=== PATIENT | male | born 1965 | race Caucasian/White ===

== ENCOUNTER 2018-07-01 22:59 | Emergency (ER) | payer OTHER ==
--- OUTSIDE RECORDS SUMMARY | 2018-07-01 23:14 | XMS REPORT | Continuity of Care Document ---
:1965 External Reference #:[id number] Author Name Edmond Saez M.D. Address [address] [place] [address] Care Team Providers Name Role Phone Edmond Saez M.D. 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 PayID: [id number] [place] [address] Advance Directives Description No Information Available Problems Date Description Provider Status Onset: 02/19/2012 Ulcerative colitis Edmond Saez M.D. Active Onset: 02/19/2012 Pure hypercholesterolemia Edmond Saez M.D. Active Family History Date Family Member(s) Problem(s) Comments Father Kidney stones Mother Diabetes Mother Hypertension Onset: (age 64 Mother Stroke Years) Mother Back pain Mother Migraines Children 2 First Daughter Asthma First Daughter Allergies Siblings 2 First Brother "Born With Multicolored Skin" First Brother Kidney Stones First Sister Cancer, Bladder : (age 86 Paternal Grandfather due to [place] Years) Paternal Grandmother Non Contributory doing well at 95 as of 04/04 Maternal Grandfather Stroke Maternal Grandfather due to Stroke () - may have had a cerebral aneurysm that ruptured Maternal Grandmother Chrons Disease Maternal Grandmother due to Unknown () Causes Maternal Grandmother Dementia Social History Type Date Description Comments Sex Unknown Marital Status Lives With Spouse Diet Healthy, Well Balanced Diet , omnivore, meat 1-2x a vegetables. week. No fastfood. 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 Delzicol 12/05/ Hx Capsules 400mg 360cap 2 by mouth Edmond 2012 - DR richards twice a day Se, 01/26/ Sarwat 2016 Asacol 05/13/ Hx Tablets DR 400mg 360tab 2 bid Edmond 2009 - maurice Saez 12/05/ MFerdinand 2012 Penicillin 10/03/ Hx Tablets 500mg 20tabs One bid [id number] Edmond RICHARDSON 2006 - Days Se, 01/01/ Sarwat 2006 Immunizations CPT Code Status Date Vaccine Lot # [id number] Given 05/22/2018 Influenza Virus Vaccine, Quadrivalent, 3 Yr > [id number] Quad, Preserv Free [id number] Given 05/13/2010 Tdap (Adacel) [id number] Given 05/13/2010 Influenza Vaccine-Preservative Free 3 Yrs And [id number] Above 03660 Given 03/27/2006 Hep B Vaccine Adult, 3 Dose age >20 yrs [id number] Given 03/27/2006 Hepatitis A, Adult [id number] 89700 Given 10/25/2005 Hep B Vaccine Adult, 3 Dose age >20 yrs 36801 Given 09/27/2005 Hep B Vaccine Adult, 3 Dose age >20 yrs [id number] 40107 Given 09/27/2005 Hepatitis A, Adult [id number] 71954 Given 01/14/2004 DT (Adult) Vital Signs Date Vital Result Comment 05/22/2018 1:48pm Weight 189.00 lb Weight 85.730 kg BP Systolic 128 mmHg BP Diastolic 80 mmHg Heart Rate 58 /min Body Temperature 97.9 F Respiratory Rate 16 /min Height 69 inches 5'9" BMI (Body Mass Index) 27.9 kg/m2 05/10/2017 10:46am Weight 193.00 lb Weight 87.545 kg BP Systolic 100 mmHg BP Diastolic 80 mmHg Heart Rate 56 /min Body Temperature 97.6 F Height 68 inches 5'8" BMI (Body Mass Index) 29.3 kg/m2 03/15/2016 8:36am Weight 192.00 lb Weight 87.091 kg BP Systolic 112 mmHg BP Diastolic 78 mmHg Heart Rate 56 /min Height 69 inches 5'9" BMI (Body Mass Index) 28.4 kg/m2 Waist Circumference 39 01/28/2016 11:27am Weight 195.00 lb Weight 88.452 kg BP Systolic 98 mmHg BP Diastolic 70 mmHg Heart Rate 50 /min 02/12/2015 2:10pm Weight 187.00 lb Weight 84.823 kg BP Systolic 100 mmHg BP Diastolic 70 mmHg Heart Rate 52 /min Height 69 inches 5'9" BMI (Body Mass Index) 27.6 kg/m2 07/03/2013 2:19pm Weight 183.00 lb Weight 83.009 kg BP Systolic 110 mmHg BP Diastolic 72 mmHg Heart Rate 68 /min Height 69 inches 5'9" BMI (Body Mass Index) 27.0 kg/m2 02/06/2013 10:04am Weight 184.00 lb Weight 83.462 kg BP Systolic 120 mmHg BP Diastolic 78 mmHg Heart Rate 58 /min 12/29/2011 8:44am Weight 165.00 lb Weight 74.844 kg BP Systolic 90 mmHg BP Diastolic 70 mmHg Heart Rate 72 /min Height 69.25 inches 5'9.25" BMI (Body Mass Index) 24.2 kg/m2 05/13/2010 8:44am Weight 187.00 lb Weight 84.823 kg BP Systolic 102 mmHg BP Diastolic 80 mmHg Heart Rate 72 /min Height 69 inches 5'9" BMI (Body Mass Index) 27.6 kg/m2 06/18/2009 11:16am Weight 190.00 lb Weight 86.184 kg BP Systolic 112 mmHg BP Diastolic 68 mmHg Heart Rate 64 /min Body Temperature 97.8 F 04/30/2008 9:49am Weight 182.00 lb Weight 82.555 kg BP Systolic 100 mmHg repeat 120/84 BP Diastolic 90 mmHg repeat 120/84 Heart Rate 60 /min Height 69 inches 5'9" BMI (Body Mass Index) 26.9 kg/m2 10/03/2006 9:03am Weight 185.00 lb Weight 83.916 kg BP Systolic 106 mmHg BP Diastolic 64 mmHg Heart Rate 68 /min Body Temperature 97.6 F Height 69 inches 5'9" BMI (Body Mass Index) 27.3 kg/m2 09/27/2005 1:19pm Weight 184.00 lb Weight 83.462 kg BP Systolic 110 mmHg BP Diastolic 80 mmHg Heart Rate 62 /min Respiratory Rate 18 /min Height 69 inches 5'9" BMI (Body Mass Index) 27.2 kg/m2 10/06/2004 12:05pm Weight 180.00 lb Weight 81.648 kg BP Systolic 120 mmHg BP Diastolic 80 mmHg Heart Rate 80 /min Body Temperature 97.1 F Respiratory Rate 18 /min Height 69 inches 5'9" BMI (Body Mass Index) 26.6 kg/m2 01/14/2004 1:27pm Weight 182.00 lb Weight 82.555 kg BP Systolic 110 mmHg BP Diastolic 76 mmHg Heart Rate 56 /min Height 69 inches BMI (Body Mass Index) 26.9 kg/m2 Results Test Date Facility Test Result H/L Range Note CBC Auto Diff 05/22/2018 [facility] White Blood 6.7 10^3/uL 3.5-10.8 [phone] Count Red Blood Count 5.57 10^6/uL High 4.00-5.40 Hemoglobin 17.1 g/dL 14.0-18.0 Hematocrit 49 % 42-52 Mean Corpuscular Volume 89 fL 80-94 Mean Corpuscular Hemoglobin 31 pg 27-31 Mean Corpuscular HGB Conc 35 g/dL 31-36 Red Cell Distribution Width 13 % 10.5-15 Platelet Count 210 10^3/uL 150-450 Mean Platelet Volume 8.3 um3 7.4-10.4 Abs Neutrophils 4.1 10^3/uL 1.5-7.7 Abs Lymphocytes 1.9 10^3/uL 1.0-4.8 Abs Monocytes 0.4 10^3/uL 0-0.8 Abs Eosinophils 0.2 10^3/uL 0-0.6 Abs Basophils 0.1 10^3/uL 0-0.2 Abs Nucleated RBC 0 10^3/uL Granulocyte % 61.6 % 38-83 Lymphocyte % 28.0 % 25-47 Monocyte % 6.3 % 0-7 Eosinophil % 3.3 % 0-6 Basophil % 0.8 % 0-2 Nucleated Red Blood Cells % 0.1 Comp Metabolic Panel 05/22/2018 [facility] Sodium 141 mmol/L 135-145 [phone] Potassium 4.8 mmol/L 3.5-5.0 Chloride 105 mmol/L 101-111 Co2 Carbon Dioxide 28 mmol/L 22-32 Anion Gap 8 mmol/L 2-11 Glucose 97 mg/dL 70-100 Blood Urea Nitrogen 10 mg/dL 6-24 Creatinine 1.00 mg/dL 0.67-1.17 BUN/Creatinine Ratio 10.0 8-20 Calcium 9.9 mg/dL 8.6-10.3 Total Protein 7.4 g/dL 6.4-8.9 Albumin 4.9 g/dL 3.2-5.2 Globulin 2.5 g/dL 2-4 Albumin/Globulin Ratio 2.0 1-3 Total Bilirubin 0.50 mg/dL 0.2-1.0 Alkaline Phosphatase 51 U/L 34-104 Alt 19 U/L 7-52 Ast 14 U/L 13-39 Egfr Non- 78.8 >60 Egfr 95.3 >60 1 Lipid Profile 05/22/2018 [facility] Triglycerides 192 mg/dL 2 (Trig/Chol/HDL) [phone] Cholesterol 153 mg/dL 3 HDL Cholesterol 31.0 mg/dL 4 LDL Cholesterol 84 mg/dL 5 Laboratory test 05/22/2018 [facility] PSA Screening 0.489 0-4.000 6 finding [phone] CBC Auto Diff 05/08/2018 [facility] White Blood 5.6 3.5-10.8 [phone] Count 10^3/uL Red Blood Count 5.16 10^6/uL 4.00-5.40 Hemoglobin 15.7 g/dL 14.0-18.0 Hematocrit 46 % 42-52 Mean Corpuscular Volume 90 fL 80-94 Mean Corpuscular Hemoglobin 31 pg 27-31 Mean Corpuscular HGB Conc 34 g/dL 31-36 Red Cell Distribution Width 14 % 10.5-15 Platelet Count 204 10^3/uL 150-450 Mean Platelet Volume 8.2 um3 7.4-10.4 Abs Neutrophils 3.1 10^3/uL 1.5-7.7 Abs Lymphocytes 1.7 10^3/uL 1.0-4.8 Abs Monocytes 0.5 10^3/uL 0-0.8 Abs Eosinophils 0.3 10^3/uL 0-0.6 Abs Basophils 0.1 10^3/uL 0-0.2 Abs Nucleated RBC 0 10^3/uL Granulocyte % 54.9 % 38-83 Lymphocyte % 30.6 % 25-47 Monocyte % 8.2 % High 0-7 Eosinophil % 4.8 % 0-6 Basophil % 1.5 % 0-2 Nucleated Red Blood Cells % 0.6 Comp Metabolic Panel 05/08/2018 [facility] Sodium 139 mmol/L 135-145 [phone] Potassium 4.7 mmol/L 3.5-5.0 Chloride 106 mmol/L 101-111 Co2 Carbon Dioxide 29 mmol/L 22-32 Anion Gap 4 mmol/L 2-11 Glucose 98 mg/dL 70-100 Blood Urea Nitrogen 14 mg/dL 6-24 Creatinine 1.13 mg/dL 0.67-1.17 BUN/Creatinine Ratio 12.4 8-20 Calcium 9.1 mg/dL 8.6-10.3 Total Protein 6.9 g/dL 6.4-8.9 Albumin 4.3 g/dL 3.2-5.2 Globulin 2.6 g/dL 2-4 Albumin/Globulin Ratio 1.7 1-3 Total Bilirubin 0.50 mg/dL 0.2-1.0 Alkaline Phosphatase 44 U/L 34-104 Alt 19 U/L 7-52 Ast 13 U/L 13-39 Egfr Non- 68.4 >60 Egfr 82.8 >60 7 Lipid Profile 05/08/2018 [facility] Triglycerides 176 mg/dL 8 (Trig/Chol/HDL) [phone] Cholesterol 153 mg/dL 9 HDL Cholesterol 30.4 mg/dL 10 LDL Cholesterol 87 mg/dL 11 Laboratory test 01/17/2018 [facility] Lyme Disease Negative Negative 12 finding [phone] Serology Laboratory test 10/12/2017 [facility] Surgical SEE RESULT 13 finding [phone] Interface BELOW Order Urine DIP 05/10/2017 In House Lab Leukocytes TRACE Neg (607)- - Urine Nitrites NEG Neg Urobilinogen NORM Norm Total Protein, Urine NEG Neg Urine pH 5 5-6 Urine Blood NEG Neg Specific [place] 1.02 1.01-1.02 Urine Ketones NEG Neg Urine Bilirubin NEG Neg Urine Glucose NORM Norm Comp Metabolic 03/03/2017 [facility] Sodium 138 mmol/ L 133-145 14 Panel [phone] Potassium 4.3 mmol/L 3.5-5.0 Chloride 107 mmol/L 101-111 Co2 Carbon Dioxide 26 mmol/L 22-32 Anion Gap 5 mmol/L 2-11 Glucose 99 mg/dL 70-100 Blood Urea Nitrogen 9 mg/dL 6-24 Creatinine 1.14 mg/dL 0.67-1.17 BUN/Creatinine Ratio 7.9 Low 8-20 Calcium 9.1 mg/dL 8.6-10.3 Total Protein 6.7 g/dL 6.4-8.9 Albumin 4.2 g/dL 3.2-5.2 Globulin 2.5 g/dL 2-4 Albumin/Globulin Ratio 1.7 1-3 Total Bilirubin 0.50 mg/dL 0.2-1.0 Alkaline Phosphatase 40 U/L 34-104 Alt 14 U/L 7-52 Ast 13 U/L 13-39 Egfr Non- 68.0 >60 Egfr 87.4 >60 15 Lipid Profile 03/03/2017 [facility] Triglycerides 126 mg/dL 16 (Trig/Chol/HDL) [phone] Cholesterol 139 mg/dL 17 HDL Cholesterol 25.3 mg/dL 18 LDL Cholesterol 89 mg/dL 19 CBC Auto Diff 03/03/2017 [facility] White Blood 5.9 10^3/uL 3.5-10.8 [phone] Count Red Blood Count 5.00 10^6/uL 4.0-5.4 Hemoglobin 13.5 g/dL Low 14.0-18.0 Hematocrit 41 % Low 42-52 Mean Corpuscular Volume 82 fL 80-94 Mean Corpuscular Hemoglobin 27 pg 27-31 Mean Corpuscular HGB Conc 33 g/dL 31-36 Red Cell Distribution Width 16 % High 10.5-15 Platelet Count 198 10^3/uL 150-450 Mean Platelet Volume 8 um3 7.4-10.4 Abs Neutrophils 3.4 10^3/uL 1.5-7.7 Abs Lymphocytes 1.6 10^3/uL 1.0-4.8 Abs Monocytes 0.5 10^3/uL 0-0.8 Abs Eosinophils 0.3 10^3/uL 0-0.6 Abs Basophils 0.1 10^3/uL 0-0.2 Abs Nucleated RBC 0 10^3/uL Granulocyte % 58.4 % 38-83 Lymphocyte % 27.2 % 25-47 Monocyte % 8.5 % 1-9 Eosinophil % 4.8 % 0-6 Basophil % 1.1 % 0-2 Nucleated Red Blood Cells % 0.1 Laboratory test 03/03/2017 [facility] PSA Screening 0.418 ng/mL 0-4.000 20 finding [phone] Laboratory test 09/11/2015 [facility] Surgical SEE RESULT 21 finding [phone] Pathology BELOW Comp Metabolic 02/09/2015 [facility] Sodium 139 mmol/ L 133-145 Panel [phone] Potassium 4.3 mmol/L 3.5-5.0 Chloride 109 mmol/L 101-111 Co2 Carbon Dioxide 25 mmol/L 22-32 Anion Gap 5 mmol/L 2-11 Glucose 96 mg/dL 70-100 Blood Urea Nitrogen 11 mg/dL 6-24 Creatinine 1.10 mg/dL 0.67-1.17 BUN/Creatinine Ratio 10.0 8-20 Calcium 8.7 mg/dL 8.6-10.3 Total Protein 6.6 g/dL 6.4-8.9 Albumin 4.3 g/dL 3.2-5.2 Globulin 2.3 g/dL 2-4 Albumin/Globulin Ratio 1.9 1-3 Total Bilirubin 0.50 mg/dL 0.2-1.0 Alkaline Phosphatase 41 U/L 34-104 Alt 14 U/L 7-52 Ast 13 U/L 13-39 Egfr Non- 71.4 >60 Egfr 91.9 >60 22 Lipid Profile 02/09/2015 [facility] Triglycerides 140 mg/dL 23 (Trig/Chol/HDL) [phone] Cholesterol 143 mg/dL 24 HDL Cholesterol 28.1 mg/dL 25 LDL Cholesterol 87 mg/dL 26 CBC Auto Diff 02/09/2015 [facility] White Blood 5.5 10^3/uL 4.8-10.8 [phone] Count Red Blood Count 5.13 10^6/uL 4.0-5.4 Hemoglobin 14.4 g/dL 14.0-18.0 Hematocrit 44 % 42-52 Mean Corpuscular Volume 86 fL 80-94 Mean Corpuscular Hemoglobin 28 pg 27-31 Mean Corpuscular HGB Conc 33 g/dL 31-36 Red Cell Distribution Width 16 % High 10.5-15 Platelet Count 217 10^3/uL 150-450 Mean Platelet Volume 9 um3 7.4-10.4 Abs Neutrophils 3.3 10^3/uL 1.5-7.7 Abs Lymphocytes 1.5 10^3/uL 1.0-4.8 Abs Monocytes 0.4 10^3/uL 0-0.8 Abs Eosinophils 0.3 10^3/uL 0-0.6 Abs Basophils 0.1 10^3/uL 0-0.2 Abs Nucleated RBC 0 10^3/uL Granulocyte % 59.4 % 38-83 Lymphocyte % 27.8 % 25-47 Monocyte % 7.1 % 1-9 Eosinophil % 4.6 % 0-6 Basophil % 1.1 % 0-2 Nucleated Red Blood Cells % 0.1 Surgical Pathology 09/03/2013 [facility] S RUN DATE: 08 [phone] 09/04/ <SEE NOTE> Urine DIP 07/03/2013 In House Lab Leukocytes neg Neg (607)- - Urine Nitrites neg Neg Urine pH 6 5-6 Total Protein, Urine neg Neg Urine Glucose norm Norm Urine Ketones neg Neg Urobilinogen norm Norm Urine Bilirubin neg Neg Urine Blood neg Neg Specific [place] 1.015 1.01-1.02 CBC No Diff 06/27/2013 [facility] White Blood 5.9 10^ 3/uL 4.8-10.8 [phone] Count Red Blood Count 5.00 10^6/uL 4.0-5.4 Hemoglobin 14.4 g/dL 14.0-18.0 Hematocrit 43 % 42-52 Mean Corpuscular Volume 86 fL 80-94 Mean Corpuscular Hemoglobin 29 pg 27-31 Mean Corpuscular HGB Conc 33 g/dL 31-36 Red Cell Distribution Width 14 % 10.5-15 Platelet Count 198 10^3/uL 150-450 Mean Platelet Volume 8 um3 7.4-10.4 Comp Metabolic Panel 06/27/2013 [facility] Sodium 138 mmol/L 133-145 [phone] Potassium 4.4 mmol/L 3.5-5.0 Chloride 106 mmol/L 101-111 Co2 Carbon Dioxide 26.0 mmol/L 22-32 Anion Gap 6.0 mmol/L 2-11 Glucose 96 mg/dL 70-100 Blood Urea Nitrogen 9 mg/dL 6-24 Creatinine 1.10 mg/dL 0.50-1.40 BUN/Creatinine Ratio 8.2 8-20 Calcium 9.5 mg/dL 8.1-9.9 Total Protein 6.7 g/dL 6.2-8.1 Albumin 4.3 g/dL 3.6-5.4 Globulin 2.4 g/dL 2-4 Albumin/Globulin Ratio 1.8 1-3 Total Bilirubin 0.9 mg/dL 0.4-1.5 Alkaline Phosphatase 44 U/L 30-110 Alt 16 U/L 14-54 Ast 18 U/L 12-42 Egfr Non- 72.1 >60 Egfr 92.7 >60 28 Lipid Profile 06/27/2013 [facility] Triglycerides 113 mg/dL 40-200 (Trig/Chol/HDL) [phone] Cholesterol 164 mg/dL Less than 200 HDL Cholesterol 30 mg/dL Low 40-60 29 Cholesterol/HDL Ratio 5.5 Average High 1-4.44 LDL Cholesterol 111.4 High Less Than 100 30 Urine DIP 12/29/2011 In House Lab Leukocytes NEG Neg (607)- - Urine Nitrites NEG Neg Urine pH 5 5-6 Total Protein, Urine NEG Neg Urine Glucose NORM Norm Urine Ketones NEG Neg Urobilinogen NORM Norm Urine Bilirubin NEG Neg Urine Blood NEG Neg Specific [place] N/A Low 1.01-1.02 Lipid Profile 12/21/2011 [facility] Triglyceride 91 mg/dL 40-200 (Trig/Chol/HDL) [phone] Cholesterol 171 mg/dL Less Than 200 31 High Density Lipoprotein 31 mg/dL Low 40-60 32 Cholesterol/HDL Ratio 5.52 AVERAGE High 1-4.97 Low Density Lipoprotein 122 mg/dL High Less Than 100 33 Basic Metabolic 12/21/2011 [facility] Sodium 138 mmol /L 135-145 Panel [phone] Potassium 5.0 mmol/L 3.5-5.0 Chloride 103 mmol/L 101-111 Co2 (Carbon Dioxide) 30.0 mmol/L 22-32 Anion Gap 5.0 mmol/L 2-11 34 Glucose 97 mg/dL 70-100 BUN 9 mg/dL 6-24 Creatinine 1.1 mg/dL 0.50-1.40 One Over Creatinine 0.90 BUN/Creatinine Ratio 8.2 8-20 Calcium 8.9 mg/dL 8.1-9.9 eGFR Non- 72.4 > 60 eGFR 93.1 > 60 35 Surgical 07/12/2011 [facility] Surgical --- 36 Pathology [phone] Pathology <SEE NOTE> Urine DIP 05/13/2010 In House Lab Leukocytes neg Neg (607)- - Urine Nitrites neg Neg Urine pH 5 5-6 Total Protein, Urine trace Neg Urine Glucose norm Norm Urine Ketones neg Neg Urobilinogen norm Norm Urine Bilirubin neg Neg Urine Blood neg Neg Specific [place] n/a Low 1.01-1.02 Lipid Profile 04/29/2010 [facility] Triglyceride 182 mg/dL 40-200 (Trig/Chol/HDL) [phone] Cholesterol 143 mg/dL Less Than 200 37 High Density Lipoprotein 20 mg/dL Low 40-60 38 Cholesterol/HDL Ratio 7.15 AVERAGE High 1-4.97 Low Density Lipoprotein 87 mg/dL Less Than 100 39 Laboratory test 04/29/2010 [facility] Glucose 89 mg/ dL 70-100 40 finding [phone] Surgical 07/14/2009 [facility] Surgical 41 Pathology [phone] Pathology ------ <SEE NOTE> Laboratory test 06/18/2009 In House Lab Strep Screen NEG Neg finding (607)- - Urine DIP 04/30/2008 In House Lab Leukocytes neg Neg (607)- - Urine Nitrites neg Neg Urine pH 6-7 5-6 Total Protein, Urine neg Neg Urine Glucose norm Norm Urine Ketones neg Neg Urobilinogen norm Norm Urine Bilirubin neg Neg Urine Blood neg Neg Specific [place] n/a Low 1.01-1.02 Laboratory test 10/03/2006 In House Lab Strep Screen pos Neg finding (607)- - Surgical Pathology 03/14/2006 [facility] Surgical Pathology 42 [phone] ----- <SEE NOTE> Urine DIP 09/27/2005 In House Lab Leukocytes NEG Neg (607)- - Urine Nitrites NEG Neg Urine pH 5 5-6 Total Protein, Urine NL Neg Urine Glucose NL; Norm Urine Ketones NL Neg Urobilinogen NL Norm Urine Bilirubin NL Neg Urine Blood NL Neg Specific [place] N/A Low 1.01-1.02 Laboratory test 03/09/2004 [facility] Pathology COLON BIOPSY finding (607)- - Report Lipid Profile 01/14/2004 [facility] Cholesterol/HDL 5.81 AVERAGE High 1-4.97 (Trig/Chol/HDL) [phone] Ratio Cholesterol 151 mg/dL Less Than 200 43 Triglyceride 125 mg/dL 40-200 High Density Lipoprotein 26 mg/dL Low 40-60 44 Low Density Lipoprotein 100 mg/dL Less Than 100 45 Urine DIP 01/14/2004 In House Lab Leukocytes NEG Neg (607)- - Urine Nitrites NEG Neg Urine pH 5 5-6 Total Protein, Urine NEG Neg Urine Glucose NORM Norm Urine Ketones NEG Neg Urobolinogen NORM Norm Urine Bilirubin NEG Neg Urine Blood NEG Neg Specific [place] NA Low 1.01-1.02 1 Because ethnic data is not always readily available, this report includes an eGFR for both -Americans and non- Americans. The National Kidney Disease Education Program (NKDEP) does not endorse the use of the MDRD equation for patients that are not between the ages of 18 and 70, are , have extremes of body size, muscle mass, or nutritional status, or are non- or non-. According to the National Kidney Foundation, irrespective of diagnosis, the stage of the disease is based on the level of kidney function: Stage Description GFR(mL/min/1.73 m(2)) 1 Kidney damage with normal or decreased GFR 90 2 Kidney damage with mild decrease in GFR 60-89 3 Moderate decrease in GFR 30-59 4 Severe decrease in GFR 15-29 5 Kidney failure <15 (or dialysis) 2 Desirable: <150 Borderline High: 150-199 High: 200-499 Very High: >500 3 Desirable: <200 Borderline High: 200-239 High: >239 4 Low: <40 Desirable: 40-60 High: >60 5 Desirable: <100 Near Optimal: 100-129 Borderline High: 130-159 High: 160-189 Very High: >189 6 Serum levels of PSA measured using the [employer] DXI Hybritech immunoassay should not be interpreted as absolute evidence of the presence or absence of disease. The PSA value should be used in conjunction with other pertinent clinical diagnostic procedures. A PSA value in the range of 0.1 to 0.6 ng/ml is indeterminate if being used as an indicator of recurrent or residual disease. The values obtained with different assay methods or kits cannot be used interchangeably. 7 Because ethnic data is not always readily available, this report includes an eGFR for both -Americans and non- Americans. The National Kidney Disease Education Program (NKDEP) does not endorse the use of the MDRD equation for patients that are not between the ages of 18 and 70, are , have extremes of body size, muscle mass, or nutritional status, or are non- or non-. According to the National Kidney Foundation, irrespective of diagnosis, the stage of the disease is based on the level of kidney function: Stage Description GFR(mL/min/1.73 m(2)) 1 Kidney damage with normal or decreased GFR 90 2 Kidney damage with mild decrease in GFR 60-89 3 Moderate decrease in GFR 30-59 4 Severe decrease in GFR 15-29 5 Kidney failure <15 (or dialysis) 8 Desirable: <150 Borderline High: 150-199 High: 200-499 Very High: >500 9 Desirable: <200 Borderline High: 200-239 High: >239 10 Low: <40 Desirable: 40-60 High: >60 11 Desirable: <100 Near Optimal: 100-129 Borderline High: 130-159 High: 160-189 Very High: >189 12 No evidence of antibodies to B. burgdorferi detected. False negative results may occur in recently infected patients (<=2 weeks) due to low or undetectable antibody levels to B. burgdorferi. If recent exposure is suspected, a second sample should be collected and tested in 2-4 weeks. Test Performed by: [facility] [address] [place] [address] 13 SEE RESULT BELOW Name: DREW PAZ : [address]: Janay Neal DO Acct: [id number] Unit: [id number] AGE: 51 Location: ENDO Re10/12/17 SEX: M Status: DEP REF SPEC: [id number] SHANEL: 10/12/17-1210 [facility] DR: Janay Neal DO REQ: [id number] RECD: 10/12/17-1523 STATUS: SEMAJ ELLIS DR: Edmond Saez MD _ ORDERED: LEVEL 4/9 FINAL DIAGNOSIS 1. Terminal ileum, biopsy: -- Benign small intestinal mucosa with no significant pathologic abnormalities. -- No evidence of villous blunting or increased intraepithelial lymphocytes. -- No evidence of viral cytopathic effect or parasites. 2. Colon, cecum, biopsy: -- Very mild, inactive chronic colitis. -- No granulomata are seen. -- Dysplasia is absent. 3. Colon, ascending, biopsy: -- Very mild, inactive chronic colitis. -- No granulomata are seen. -- Dysplasia is absent. 4. Colon, transverse, biopsy: -- Very mild, inactive chronic colitis. -- Granulomata are not seen. -- Dysplasia is absent. 5. Colon, descending, biopsy: -- Very mild, inactive chronic colitis. -- Granulomata are not seen. -- Dysplasia is absent. 6. Colon, sigmoid, biopsy: -- Mild inactive chronic colitis. -- Granulomata are not seen. -- Dysplasia is absent. 7. Colon, sigmoid, biopsy: -- Hyperplastic polyps (4). 8. Colon, rectum, biopsy: CONTINUED ON NEXT PAGE * ML=Testing performed at Main Lab DEPARTMENT OF PATHOLOGY, [address] [place] [address] Zak Hubbard M.D. Director [facility] # [id number] RUN DATE: 10/13/17 [facility] LIVE PAGE 2 Patient: DREW PAZ [id number] (Continued) FINAL DIAGNOSIS (Continued) -- Hyperplastic polyps (2). 9. Colon, rectum, biopsy: --Very mild inactive chronic colitis. -- Granulomata are not seen. -- Dysplasia is absent. CLINICAL HISTORY 51 year old male here with ulcerative colitis and surveillance colonoscopy; on Delzicol; last colonoscopy in 2016 - normal POST-OPERATIVE DIAGNOSIS Normal terminal ileum; diverticulosis in ascending colon, descending colon ( scattered); four 4 mm sessile sigmoid polyps and two 4 mm sessile rectal polyps both status post polypectomy; good prep. Conclusions/Plan: Follow-up pathology; 2 years GROSS DESCRIPTION 1. The specimen is received in formalin labeled, Biopsy Terminal Ileum, and consists of two sue-pink irregular soft tissue fragments measuring 0.3 x 0.2 x 0.1 cm and 0.4 x 0.2 x 0.1 cm which are submitted entirely in one cassette. 2. The specimen is received in formalin labeled, Biopsy Cecum, and consists of two sue-pink irregular soft tissue fragments averaging 0.4 x 0.2 x 0.1 cm which are submitted entirely in one cassette. 3. The specimen is received in formalin labeled, Biopsy Ascending Colon, and consists of a 0.6 x 0.3 x 0.1 cm sue-pink irregular soft tissue fragment is submitted entirely in one cassette. 4. The specimen is received in formalin labeled, Biopsy Transverse Colon, and consists of two sue-pink irregular soft tissue fragments measuring 0.4 x 0.2 x 0.1 cm and 0.5 x 0.1 x 0.1 cm which are submitted entirely in one cassette. 5. The specimen is received in formalin labeled, Biopsy Descending Colon, and consists of two sue-pink irregular soft tissue fragments measuring 0.3 x 0.2 x 0.1 cm and 0.8 by up to 0.3 x 0.1 cm which are submitted entirely in one cassette. 6. The specimen is received in formalin labeled, Biopsy Sigmoid Colon, and consists of two CONTINUED ON NEXT PAGE * ML=Testing performed at Main Lab DEPARTMENT OF PATHOLOGY, [address] [place] [address] Zak Hubbard M.D. Director [facility] # [id number] RUN DATE: 10/13/17 [facility] LAB LIVE PAGE 3 Patient: DREW PAZ [id number] (Continued) GROSS DESCRIPTION (Continued) GROSS DESCRIPTION (Continued) sue-pink irregular soft tissue fragments measuring 0.4 x 0.3 x 0.1 cm and 0.7 x 0.1 x 0.1 cm which are submitted entirely in one cassette. 7. The specimen is received in formalin labeled, Biopsy Sigmoid Polyps, and consists of a 1.0 x 0.6 by up to 0.2 cm aggregate of sue-pink irregular soft tissue fragments which is submitted entirely in one cassette. 8. The specimen is received in formalin labeled, Biopsy Rectal Polyps, and consists of a 0.8 x 0.3 x 0.2 cm aggregate of sue-pink irregular soft tissue fragments which is submitted entirely in one cassette. 9. The specimen is received in formalin labeled, Biopsy Rectum, and consists of two sue-pink irregular soft tissue fragments averaging 0.7 x 0.2 x 0.1 cm which are submitted entirely in one cassette. Signed (signature on file) Cony Jackman MD 1403 END OF REPORT * ML=Testing performed at Main Lab DEPARTMENT OF PATHOLOGY, [address] [place] [address] Zak Hubbard M.D. Director [facility] # [id number] Because ethnic data is not always readily available, this report includes an eGFR for both -Americans and non- Americans. The National Kidney Disease Education Program (NKDEP) does not endorse the use of the MDRD equation for patients that are not between the ages of 18 and 70, are , have extremes of body size, muscle mass, or nutritional status, or are non- or non-. According to the National Kidney Foundation, irrespective of diagnosis, the stage of the disease is based on the level of kidney function: Stage Description GFR(mL/min/1.73 m(2)) 1 Kidney damage with normal or decreased GFR 90 2 Kidney damage with mild decrease in GFR 60-89 3 Moderate decrease in GFR 30-59 4 Severe decrease in GFR 15-29 5 Kidney failure <15 (or dialysis) 16 Desirable <150 Borderline high 150-199 High 200-499 Very High >500 17 Desirable <200 Borderline high 200-239 High >239 18 Low <40 Desirable: 40-60 High: >60 19 Desirable: <100 mg/dL Near Optimal: 100-129 mg/dL Borderline High: 130-159 mg/dL High: 160-189 mg/dL Very High: >189 mg/dL 20 Serum levels of PSA measured using the Rabia Kamryn DXI Hybritech immunoassay should not be interpreted as absolute evidence of the presence or absence of disease. The PSA value should be used in conjunction with other pertinent clinical diagnostic procedures. A PSA value in the range of 0.1 to 0.6 ng/ml is indeterminate if being used as an indicator of recurrent or residual disease. The values obtained with different assay methods or kits cannot be used interchangeably. 21 SEE RESULT BELOW Name: DREW PAZ : [address]: Jaswant Turner MD Acct: [id number] Unit: [id number] AGE: 49 Location: ENDO Re09/11/15 SEX: M Status: REG REF SPEC: [id number] SHANEL: 09/11/15- SUBM DR: Jaswant Turner MD REQ: [id number] RECD: 09/11/15-1305 STATUS: SEMAJ ELLIS DR: Edmond Saez MD _ ORDERED: LEVEL IV/6 FINAL DIAGNOSIS 1. Colon, 110 cm, biopsy: -- Large intestinal mucosa with mild architectural disorder. -- No active colitis or evidence of chronic inflammatory bowel disease identified. -- No dysplasia identified. 2. Colon, 90 cm, biopsy: -- Large intestinal mucosa with mild architectural disorder. -- No active colitis or evidence of chronic inflammatory bowel disease identified. -- No dysplasia identified. 3. Colon, 70 cm, biopsy: -- Large intestinal mucosa with mild architectural disorder. -- No active colitis or evidence of chronic inflammatory bowel disease identified. -- No dysplasia identified. 4. Colon, 50 cm, biopsy: -- Large intestinal mucosa with mild architectural disorder. -- No active colitis or evidence of chronic inflammatory bowel disease identified. -- No dysplasia identified. 5. Colon, 30 cm, biopsy: -- Large intestinal mucosa with mild architectural disorder. -- No active colitis or evidence of chronic inflammatory bowel disease identified. -- No dysplasia identified. 6. Colon, 10 cm, biopsy: -- Large intestinal mucosa with mild architectural disorder and hyperplastic change. -- No active colitis or evidence of chronic inflammatory bowel disease identified. -- No dysplasia identified. CONTINUED ON NEXT PAGE * ML=Testing performed at Main Lab DEPARTMENT OF PATHOLOGY, [address] [place] [address] Zak Hubbard M.D. Director [facility] # [id number] RUN DATE: 09/14/15 [facility] LAB LIVE PAGE 2 Patient: DREW PAZ [id number] (Continued) CLINICAL HISTORY (Continued) CLINICAL HISTORY Ulcerative colitis - inactive POST-OPERATIVE DIAGNOSIS Colonoscopy to cecum - normal colon; 3 biopsies taken at 110, 90, 70, 50, 30 , 10 cm. Inactive ulcerative colitis, recheck 2 years GROSS DESCRIPTION 1. The specimen is received in formalin labeled, Colon Biopsies at 110 cm, and consists of a 0.9 x 0.3 x 0.2 cm aggregate of sue irregular soft tissue fragments, which is submitted entirely in one cassette. 2. The specimen is received in formalin labeled, Colon Biopsies at 90 cm, and consists of a 0.6 x 0.4 x 0.1 cm aggregate of sue-pink irregular soft tissue fragments, which is submitted entirely in one cassette. 3. The specimen is received in formalin labeled, Colon Biopsies at 70 cm, and consists of a 0.9 x 0.3 x 0.1 cm aggregate of sue-pink irregular soft tissue fragments, which is submitted entirely in one cassette. 4. The specimen is received in formalin labeled, Colon Biopsies at 50 cm, and consists of a 0.8 x 0.5 x 0.1 cm aggregate of sue-pink irregular soft tissue fragments, which is submitted entirely in one cassette. 5. The specimen is received in formalin labeled, Colon Biopsies at 30 cm, and consists of a 0.6 x 0.5 x 0.1 cm aggregate of sue-pink irregular soft tissue fragments, which is submitted entirely in one cassette. 6. The specimen is received in formalin labeled, Colon Biopsies at 10 cm ( Rectum), and consists of a 0.8 x 0.5 x 0.1 cm aggregate of sue-pink irregular soft tissue fragments, which is submitted entirely in one cassette. Signed (signature on file) Zak Hubbard MD 1309 END OF REPORT * ML=Testing performed at Main Lab DEPARTMENT OF PATHOLOGY, [address] [place] [address] Zak Hubbard M.D. Director [facility] # [id number] 22 Because ethnic data is not always readily available, this report includes an eGFR for both -Americans and non- Americans. The National Kidney Disease Education Program (NKDEP) does not endorse the use of the MDRD equation for patients that are not between the ages of 18 and 70, are , have extremes of body size, muscle mass, or nutritional status, or are non- or non-. According to the National Kidney Foundation, irrespective of diagnosis, the stage of the disease is based on the level of kidney function: Stage Description GFR(mL/min/1.73 m(2)) 1 Kidney damage with normal or decreased GFR 90 2 Kidney damage with mild decrease in GFR 60-89 3 Moderate decrease in GFR 30-59 4 Severe decrease in GFR 15-29 5 Kidney failure <15 (or dialysis) 23 Desirable <150 Borderline high 150-199 High 200-499 Very High >500 24 Desirable <200 Borderline high 200-239 High >239 25 Low <40 Desirable: 40-60 High: >60 26 Desirable: <100 mg/dL Near Optimal: 100-129 mg/dL Borderline High: 130-159 mg/dL High: 160-189 mg/dL Very High: >189 mg/dL 27 RUN DATE: 09/04/13 [facility] LAB LIVE PAGE 1 RUN TIME: [address] [place] [address] Specimen Inquiry Name: DREW PAZ : [address]: Jaswant Turner MD Acct: [id number] Unit: [id number] AGE: 47 Location: ENDO Re09/03/13 SEX: M Status: REG REF SPEC: [id number] SHANEL: 09/03/13- SUBM DR: Jaswant Turner MD REQ: [id number] RECD: 09/03/13-1228 STATUS: SEMAJ ELLIS DR: Edmond Saez MD _ ORDERED: LEVEL IV/8 FINAL DIAGNOSIS 1. Colon, cecum, biopsy: A. Large intestinal mucosa with mild architectural disorder. B. No active colitis, cryptitis, or granulomas identified. C. No dysplasia identified. 2. Colon, ascending, biopsy: A. Large intestinal mucosa with mild architectural disorder. B. No active colitis, cryptitis, or granulomas identified. C. No dysplasia identified. 3. Colon, transverse, biopsy: A. Large intestinal mucosa with mild architectural disorder. B. No active colitis, cryptitis, or granulomas identified. C. No dysplasia identified. 4. Colon, splenic flexure, biopsy: A. Large intestinal mucosa with mild architectural disorder. B. No active colitis, cryptitis, or granulomas identified. C. No dysplasia identified. 5. Colon, 40 cm., biopsy: A. Large intestinal mucosa with mild architectural disorder. B. No active colitis, cryptitis, or granulomas identified. C. No dysplasia identified. 6. Colon, 30 cm., biopsy: A. Large intestinal mucosa with mild architectural disorder. B. No active colitis, cryptitis, or granulomas identified. C. No dysplasia identified. 7. Colon, 20 cm., biopsy: A. Large intestinal mucosa with mild architectural disorder. B. No active colitis, cryptitis, or granulomas identified. C. No dysplasia identified. CONTINUED ON NEXT PAGE * ML=Testing performed at Main Lab DEPARTMENT OF PATHOLOGY, [facility] [employer] [place] [address] Zak Hubbard M.D. Director [facility] Permit #[id number] RUN DATE: 09/04/13 [facility] LAB LIVE PAGE 2 RUN TIME: 143 [facility] [employer] [place], [place] [address] Specimen Inquiry Patient: DREW PAZ [id number] (Continued) FINAL DIAGNOSIS (Continued) 8. Colon, rectum at 10 cm., biopsy: A. Hyperplastic polyp. B. Colonic mucosa with mild architectural disorder and lamina propria muciphages. C. No active colitis, cryptitis, or granulomas identified. D. No dysplasia identified. CLINICAL HISTORY Screening colonoscopy with history of ulcerative colitis - inactive for several years POST-OPERATIVE DIAGNOSIS Screening colonoscopy to cecum, prep fair - no active colitis noted, multiple polyps removed GROSS DESCRIPTION 1. The specimen is received in formalin labeled Drew Paz, Biopsy Cecum, and consists of three sue, irregular, soft tissue fragments averaging 0.4 x 0.4 x 0.2 cm. Submitted entirely, one cassette. 2. The specimen is received in formalin labeled Drew Paz, Biopsy Ascending Colon, and consists of a 0.9 x 0.4 x 0.2 cm. aggregate of multiple sue, irregular soft tissue fragments. Submitted entirely, one cassette. 3. The specimen is received in formalin labeled Drew Paz, Biopsy Transverse Colon, and consists of 0.7 x 0.6 x 0.1 cm. aggregate of multiple sue, irregular, soft tissue fragments. Submitted entirely, one cassette. 4. The specimen is received in formalin labeled Drew Paz, Biopsy Splenic Flexure, and consists of three sue, irregular soft tissue fragments ranging from 0.4 x 0.3 x 0.1 cm. to 0.9 x 0.2 x 0.1 cm. Submitted entirely, one cassette. 5. The specimen is received in formalin labeled Drew Paz, Biopsy Colon at 40 cm., and consists of a 0.8 x 0.5 x 0.2 cm. aggregate of multiple sue, irregular soft tissue fragments. Submitted entirely, one cassette. CONTINUED ON NEXT PAGE * ML=Testing performed at Main Lab DEPARTMENT OF PATHOLOGY, [facility] [employer] [place], [place] [address] Zak Hubbard M.D. Director [facility] Permit #[id number] RUN DATE: 09/04/13 [facility] LAB LIVE PAGE 3 RUN TIME: 4303 [facility] [employer] [place], [place] [address] Specimen Inquiry Patient: DREW PAZ [id number] (Continued) GROSS DESCRIPTION (Continued) GROSS DESCRIPTION (Continued) 6. The specimen is received in formalin labeled Drew Paz, Biopsy Colon at 30 cm., and consists of a 1.0 x 0.4 x 0.1 cm. aggregate of multiple sue, irregular soft tissue fragments. Submitted entirely, one cassette. 7. The specimen is received in formalin labeled Drew Paz, Biopsy Colon at 20 cm., and consists of a 0.9 x 0.6 x 0.1 cm. aggregate of multiple sue, irregular soft tissue fragments. Submitted entirely, one cassette. 8. The specimen is received in formalin labeled Drew Paz, Biopsy Rectum at 10 cm., ? Polyp, and consists of a 1.0 x 0.8 x 0.2 cm. aggregate of multiple sue, irregular soft tissue fragments. Submitted entirely, one cassette. 1. Signed (signature on file) Zak Hubbard MD 1432 END OF REPORT * ML=Testing performed at Main Lab DEPARTMENT OF PATHOLOGY, [address] [place] [address] Zak Hubbard M.D. Director [facility] Permit #[id number] 28 Because ethnic data is not always readily available, this report includes an eGFR for both -Americans and non- Americans. The National Kidney Disease Education Program (NKDEP) does not endorse the use of the MDRD equation for patients that are not between the ages of 18 and 70, are , have extremes of body size, muscle mass, or nutritional status, or are non- or non-. According to the National Kidney Foundation, irrespective of diagnosis, the stage of the disease is based on the level of kidney function: Stage Description GFR(mL/min/1.73 m(2)) 1 Kidney damage with normal or decreased GFR 90 2 Kidney damage with mild decrease in GFR 60-89 3 Moderate decrease in GFR 30-59 4 Severe decrease in GFR 15-29 5 Kidney failure <15 (or dialysis) 29 HDL Interpretation: Undesirable: High Risk: Less than 40 mg/dL Desirable: Low Risk: Greater than 60 mg/dL 30 LDL Interpretation: Low Risk Optimal Level: LDL Less than 100 mg/dL Near or Above Optimal: LDL 100-129 mg/dL Borderline High Risk: LDL 130-159 mg/dL High Risk: LDL 160-189 mg/dL Very High Risk: LDL Greater than 189 mg/dL 31 CHOLESTEROL INTERPRETATION: Desirable: Less than 200 MG/DL Borderline-High Risk: 200-239 MG/DL High-Risk: 240 MG/DL and over 32 HDL INTERPRETATION: Undesirable: High Risk: Less than 40 MG/DL Desirable: Low Risk: Greater than 60 MG/DL 33 LDL INTERPRETATION: Low Risk Optimal Level: LDL Less than 100 MG/DL Near or Above Optimal: LDL 100-129 MG/DL Borderline High Risk: LDL 130-159 MG/DL High Risk: LDL 160-189 MG/DL Very High Risk: LDL Greater than 189 MG/DL 34 Anion gap measurement may be of limited value in the presence of any alkalosis, especially in a combined acid base disorder. . 35 Because ethnic data is not always readily available, this report includes an eGFR for both -Americans and non- Americans. The National Kidney Disease Education Program (NKDEP) does not endorse the use of the MDRD equation for patients that are not between the ages of 18 and 70, are , have extremes of body size, muscle mass, or nutritional status, or are non- or non-. According to the National Kidney Foundation, irrespective of diagnosis, the stage of the disease is based on the level of kidney function: Stage Description GFR(mL/min/1.73 m(2)) 1 Kidney damage with normal or decreased GFR 90 2 Kidney damage with mild decrease in GFR 60-89 3 Moderate decrease in GFR 30-59 4 Severe decrease in GFR 15-29 5 Kidney failure <15 (or dialysis) 36 ---- RUN DATE: 07/13/11 [facility] NMI LIVE PAGE 1 RUN TIME: 1445 Specimen Inquiry RUN USER: INTERFACE -- Name: JACKSONDREW Accanna#: [id number] Status: REG REF Re07/12/11 Age/Sex: 45/M Unit#: [id number] Location: [facility] : [birth year] -- Specimen: [id number] SOUT Spec Date: 07/12/[address]: Jaswant Turner MD Spec Type: SURGICAL P Received: 07/12/11-9286 Copies to: Edmond Saez MD SPECIMEN 1) CECAL BIOPSIES 2) ASCENDING COLON BIOPSIES 3) TRANSVERSE COLON BIOPSIES 4) COLON BIOPSIES AT 50 CM. 5) COLON BIOPSIES AT 40 CM. 6) COLON BIOPSIES AT 30 CM. 7) COLON BIOPSIES AT 20 CM. 8) RECTAL BIOPSIES HISTORY POST-OP DIAGNOSIS: Colonoscopy to cecum. Many biopsies. Inactive ulcerati ve colitis. CLINICAL INFORMATION: History of ulcerative colitis. GROSS DESCRIPTION 1) The specimen is received in formalin labelled Drew Paz, Cecal Biopsy, and consists of several fragments of yellow tissue measuring in aggregate 0.6 x 0.5 x 0.2 cm. Submitted entirely, one cassette labelled 1. 2) The specimen is received in formalin labelled Drew Paz, Biopsy Ascending Colon, and consists of a few fragments of yellow tissue measuring in aggregate 0.7 x 0.7 x 0.2 cm. Submitted entirely, one cassette labelled 2. 3) The specimen is received in formalin labelled Drew Paz, Biopsy Transverse Colon, and consists of several fragments of yellow tissue measuring in aggregate 0.5 x 0.5 x 0.2 cm. Submitted entirely, one cassette labelled 3. 4) The specimen is received in formalin labelled Jackson Brown, Biopsy Colon at 50 cm., and consists of two fragments of yellow tissue measuring in aggregate 0.7 x 0.5 x 0.2 cm. Submitted entirely, one cassette labelled 4. 5) The specimen is received in formalin labelled Drew Paz, Colon Biopsy at 40 cm., and consists of two fragments of yellow tissue measuring in aggregate 0.5 x 0.4 x 0.2 cm. Submitted entirely, one cassette labelled 5. 6) The specimen is received in formalin labelled Drew Paz, Colon Biopsy at 30 cm., and consists of several fragments of yellow tissue measuring in aggregate 0.5 x 0.5 x 0.3 cm. Submitted entirely, one cassette labelled 6. -- DEPARTMENT OF PATHOLOGY, [address] [place] [address] [facility] Permit #[id number] Zak Hubbard M.D. Director [facility] Sarwat Robins [employer] -- -- RUN DATE: 07/13/11 [facility] NMI LIVE PAGE 2 RUN TIME: 1445 Specimen Inquiry RUN USER: INTERFACE -- Name: DREW PAZ Status: REG REF Re07/12/11 Age/Sex: 45/M Unit#: [id number] Location: [facility] : [birth year] -- -- CONTINUED -- GROSS DESCRIPTION (Continued) 7) The specimen is received in formalin labelled Drew Paz, Colon Biopsy at 20 cm., and consists of a few fragments of yellow tissue measuring in aggregate 0.5 x 0.5 x 0.3 cm. Submitted entirely, one cassette labelled 7. 8) The specimen is received in formalin labelled Drew Paz, Rectal Biopsy, and consists of a few fragments of brown tissue measuring in aggregate 0.7 x 0.5 x 0.2 cm. Submitted entirely, one cassette labelled 8. DIAGNOSIS 1) Cecum, biopsy: A. Fragments of colonic mucosa with no significant pathologic changes. B. Dysplasia is not seen. 2) Ascending colon, biopsy: A. Fragments of large bowel mucosa with no significant pathologic changes. B. Dysplasia is not seen. 3) Transverse colon, biopsy: A. Fragments of large bowel mucosa with no significant pathologic changes. B. Dysplasia is not seen. 4) Colon at 50 cm., biopsy: A. Fragments of large bowel mucosa with no significant pathologic changes. B. Dysplasia is not seen. 5) Colon at 40 cm., biopsy: A. Fragments of large bowel mucosa with focal, minimal active colitis. B. Dysplasia is not seen. 6) Colon at 30 cm. biopsy: A. Fragments of large bowel mucosa with minimal architectural changes and no evidence of active colitis. B. Dysplasia is not seen. 7) Colon at 20 cm., biopsy: -- DEPARTMENT OF PATHOLOGY, [address] [place] [address] [facility] Permit #[id number] Zak Hubbard M.D. Director Zuleyma Robins M.D. [employer] -- -- RUN DATE: 07/13/11 [facility] NMI LIVE PAGE 3 RUN TIME: 1445 Specimen Inquiry RUN USER: INTERFACE -- Name: DREW PAZ Status: REG REF Re07/12/11 Age/Sex: 45/M Unit#: [id number] Location: [facility]. : [birth year] -- -- CONTINUED -- DIAGNOSIS (Continued) A. Fragments of large bowel mucosa with no significant pathologic changes. B. Dysplasia is not seen. 8) Colon, rectum, biopsy: A. Fragment of large bowel mucosa with hyperplastic change. B. Active colitis is not seen. C. Dysplasia is not seen. Signed Electronically by: ZULEYMA ROBINS 07/13/11 1444 -- -- DEPARTMENT OF PATHOLOGY, [address] [place] [address] [facility] Permit #[id number] Sarwat Canela M.D. [employer] Dir [employer] -- 37 CHOLESTEROL INTERPRETATION: Desirable: Less than 200 MG/DL Borderline-High Risk: 200-239 MG/DL High-Risk: 240 MG/DL and over 38 HDL INTERPRETATION: Undesirable: High Risk: Less than 40 MG/DL Desirable: Low Risk: Greater than 60 MG/DL 39 LDL INTERPRETATION: Low Risk Optimal Level: LDL Less than 100 MG/DL Near or Above Optimal: LDL 100-129 MG/DL Borderline High Risk: LDL 130-159 MG/DL High Risk: LDL 160-189 MG/DL Very High Risk: LDL Greater than 189 MG/DL 40 Note change in reference range as of 04/17/08. The change was based on recommendations from the [place] [employer]. 41 ---- RUN DATE: 07/15/09 [facility] NMI LIVE PAGE 1 RUN TIME: 1547 Specimen Inquiry RUN USER: INTERFACE -- Name: DREW PAZ Status: REG REF Re07/14/09 Age/Sex: 43/M Unit#: [id number] Location: [facility] : [birth year] -- Specimen: [id number] SOUT Spec Date: 07/14/[address]: Jaswant Turner MD Spec Type: SURGICAL P Received: 07/14/09 Copies to: Edmond Saez MD SPECIMEN 1) SITE 60 CM COLON BIOPSY 2) COLON SITE 50 CM. BIOPSY 3) COLON BIOPSY 40 CM. 4) COLON BIOPSY AT 30 CM. 5) COLON BIOPSY AT 20 CM. 6) COLON BIOPSY AT 10 CM. 7) COLON BIOPSY AT 5 CM. HISTORY POST-OP DIAGNOSIS: Ulcerative proctitis CLINICAL INFORMATION: Chronic ulcerative colitis, recent flare GROSS DESCRIPTION 1) Specimen received in formalin labelled Drew Paz, 60 cm. Colon Biopsy and consists of several fragments of sue-white tissue measuring in aggregate 0.6 x 0.6 x 0.3 cm. Submitted entirely, one cassette labelled one. 2) Specimen received in formalin labelled [facility], 50 cm. Colon Biopsy and consists of three fragments of dark brown tissue, each measuring 0.4 x 0.3 x 0.3 cm. Submitted entirely, one cassette labelled two. 3) Specimen received in formalin labelled Drew Jackson, 40 cm. Colon Biopsy and consists of three fragments of sue-yellow tissue, each measuring 0.3 x 0.3 x 0.2 cm. Submitted entirely, one cassette labelled three. 4) Specimen received in formalin labelled Drew Jackson, 30 cm. Colon Biopsy and consists of three fragments of sue-brown tissue each measuring 0.4 x 0.3 x 0.3 cm. Submitted entirely, one cassette labelled four. 5) Specimen received in formalin labelled Drew Jackson, 20 cm. Colon Biopsy and consists of several fragments of sue-brown tissue measuring in aggregate 0.7 x 0.6 x 0.3 cm. Submitted entirely, one cassette labelled five. 6) Specimen received in formalin labelled Drew Jackson, 10 cm. Colon Biopsy and consists of three fragments of sue-brown tissue each measuring 0.4 x 0.3 x 0.3 cm. Submitted entirely, one cassette labelled six. -- DEPARTMENT OF PATHOLOGY, [address] [place] [address] [facility] Permit #[id number] Zak Hubbard M.D. Director Zuleyma Robins M.D. [employer] Dir [employer]it -- -- RUN DATE: 07/15/09 [facility] NMI LIVE PAGE 2 RUN TIME: 1547 Specimen Inquiry RUN USER: INTERFACE -- Name: DREW PAZ Status: REG REF Re07/14/09 Age/Sex: 43/M Unit#: [id number] Location: [facility] : [birth year] -- -- CONTINUED -- GROSS DESCRIPTION (Continued) 7) Specimen received in formalin labelled Drew Paz, 5 cm. Colon Biopsy and consists of three fragments of sue-yellow tissue each measuring 0.4 x 0.4 x 0.3 cm. Submitted entirely, one cassette labelled seven. DIAGNOSIS 1) Colon at 60 cm., biopsy: A) Fragments of large bowel mucosa with no architectural changes and focal increase in inflammatory cells within the lamina propria. B) No evidence of chronic active colitis. 2) Colon at 50 cm., biopsy: Fragments of colonic mucosa with no evidence of chronic active colitis. 3) Colon at 40 cm., biopsy: A) Fragments of large bowel mucosa with no significant pathologic changes. B) No evidence of chronic active colitis. 4) Colon at 30 cm., biopsy: A) Large bowel mucosa with no significant pathologic changes. B) No evidence of chronic active colitis. 5) Colon at 20 cm., biopsy: A) Colonic mucosa with mild interstitial edema. B) No evidence of chronic active colitis. 6) Colon at 10 cm., biopsy: A) Large bowel mucosa with focal hyperplastic change and mild increase of inflammatory cells within the lamina propria. B) Minimal, focal acute cryptitis. 7) Colon at 5 cm., biopsy: Colonic mucosa with architectural changes and evidence of chronic active colitis with acute cryptitis and prominent increase in inflammatory cells in the lamina propria. Signed Electronically by: ZULEYMA ROBINS 07/15/09 1547 -- DEPARTMENT OF PATHOLOGY, [address] [place] [address] [facility] Permit #[id number] Zak Hubbard M.D. Director Zuleyma Robins M.D. Soap Chipper dawit -- 42 ---- RUN DATE: 03/15/06 [facility] NMI TEST PAGE 1 RUN TIME: 1443 Specimen Inquiry RUN USER: INTERFACE [id number] DREW PAZ 40/M <REG REF 03/14> ([id number]) END Jaswant Turner MD. -- Specimen: [id number] SOUT Spec Date: 03/14/[address]: Jaswant Turner MD. Spec Type: SURGICAL P Received: 03/14/06-1238 Copies to: Edmond Saez MD. SPECIMEN 1) BIOPSY CECUM 2) BIOPSY TRANSVERSE COLON 3) BIOPSY DESCENDING COLON 4) BIOPSY SIGMOID AT 30 CM HISTORY CLINICAL INFORMATION: History of ulcerative colitis. GROSS DESCRIPTION 1) The specimen is received in formalin labelled "Drew Paz, Richard Cecum" and consists of three, 0.1 to 0.2 cm. sue bits. Total, one block. 2) The specimen is received in formalin labelled "Drew Paz, Richard Transverse Colon" and consists of multiple, 0.1 to 0.2 cm, sue yellow bits. Total, one block. 3) The specimen is received in formalin labelled "Drew Paz, Richard Descending Colon" and consists of three, 0.1 to 0.2 cm. sue bits. Total, one block. 4) The specimen is received in formalin labelled "Drew Paz, Bx Sigmoid @ 30" and consists of three, 0.2 to 0.4 cm. sue-yellow strips. Total, one block. DIAGNOSIS 1) Cecum, biopsy - Intramucosal lymphoid aggregates. 2) Transverse colon, biopsy - Intramucosal lymphoid aggregates. 3) Descending colon, biopsy - Intramucosal lymphoid aggregates. 4) Sigmoid colon at 30 cm., biopsy - Intramucosal lymphoid aggregates. Signed Electronically signed ZAYRA PATEL MD 03/15/06 -- -- DEPARTMENT OF PATHOLOGY, [address] [place] [address] [facility] Permit #[id number] Zayra Patel II, M.D. Director Zak Hubbard M.D. Soap Chipper D irector -- 43 Classification: Desirable . 44 Classification: Low . 45 CALCULATED LDL APPROXIMATES THE VALUE OF A DIRECT LDL MEASUREMENT. Classification: Near or above optimal . Procedures Date Code Description Status 05/22/2018 69911 Hra-Admin Patient Focused Health Risk Assessment Completed Instrument 08/28/2017 [id number] Colonoscopy Completed 05/10/2017 60624 Hra-Admin Patient Focused Health Risk Assessment Completed Instrument Encounters Type Date Location Provider Dx Diagnosis Office Visit 05/10/2017 Main Office Edmond Saez M.D. Z00.00 Encntr for general 10:45a adult medical exam w/o abnormal findings K51.90 Ulcerative colitis, unspecified, without complications Office Visit 03/15/2016 8:45a Main Office Edmond Saez M.D. Z00.00 Encntr for general adult medical exam w/o abnormal findings K51.90 Ulcerative colitis, unspecified, without complications E78.0 Pure hypercholesterolemia Office Visit 01/28/2016 11:00a Main Office Edmond Saez M25.562 Pain in left knee M.D. Office Visit 02/12/2015 2:15p Main Office Edmond Saez V70.0 Examination General M.D. Medical Routine AT Health Care Facility 556.9 Ulcerative Colitis Unspec Office Visit 07/03/2013 2:15p Main Office Edmond Saez M.D. 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 V70.0 Examination General Medical Routine AT Health Care Facility 556.9 Ulcerative Colitis Unspec 272.0 Hypercholesterolemia Pure Office Visit 05/13/2010 8:45a Main Office Edmond Saez M.D. V70.0 Examination General Medical Routine AT Health Care Facility 556.9 Ulcerative Colitis Unspec 272.0 Hypercholesterolemia Pure V06.1 Okysxmamwu-Metzpex-Aoqbwxtw Combined (DTaP) V04.81 Need For Prophylactic Vaccination & Inoculation/Influenza Office Visit 06/18/2009 11:15a Main Office Helen Light 46Elizabeth Pharyngitis Acute Marck, [facility] Office Visit 04/30/2008 9:45a Main Office Edmond Saez M.D. V70.0 Examination General Medical Routine AT [facility] Care Facility 556.9 Ulcerative Colitis Unspec Office Visit 10/03/2006 9:00a Main Office Edmond Saez M.D. 462 Pharyngitis Acute Office Visit 09/27/2005 1:15p Main Office Edmond Saez M.D. V70.0 Examination General Medical Routine AT Health Care Facility V05.3 Viral Hepatitis Vaccination & Inoculation Office Visit 10/06/2004 11:30a Main Office Edmond Saez M.D. 465.9 URI Upper Respiratory Infections Acute Unspec Sites Office Visit 01/14/2004 1:15p Main Office Edmond Saez M.D. V70.0 Examination General Medical Routine AT Health Care Facility 556.9 Ulcerative Colitis Unspec Plan of Treatment 05/22/2018 - Edmond Saez M.D.Z00.00 Encounter for general adult medical examination without abnoComments:Every other year PSA Next in 2019 Colon cancer screening is up to date. HRA reviewed. No concerns. Other than sedentary lifestyle.He was doing well with going regularly to the gymKnee pain broke the routine and he has not restarted. still going and he thinks he can get the routine restarted. Rare ED. Check testosterone level.Follow up:CPE in 1 year. Fasting labs a week before.K51.90 Ulcerative colitis, unspecified, without complicationsComments:Colitis has been stable and well-controlled with medications.Z12.5 Encounter for screening for malignant neoplasm of prostate
[2018-07-02] MEDS ORDERED: Indomethacin CAP* 25 MG CAP PO ONE (01:40)
[2018-07-02] MEDS ORDERED: oxyCODONE/Acetamin 5/325 MG* TAB PO ONE (01:40)
--- NOTE | 2018-07-02 02:12 | ED ---
Lower Extremity - HPI Summary HPI Summary: The pt is a 52 y.o presenting to the [facility] with a chief complaint of left foot pain. She reports edema at the left foot as well. The onset of the pain is described to be as sudden and acute. The pain occurred 1999 on 06/29/18. The pain is rated as 6/10 in severity initially. Symptoms are aggravated by nothing and the symptoms are alleviated by nothing. - History of Current Complaint Chief Complaint: EDExtremityLower Stated Complaint: LT FOOT SWELLING Time Seen by Provider: 07/02/18 01:13 Hx Obtained From: Patient Onset of Pain: Days Onset/Duration: Days Severity Initially: Moderate Severity Currently: Moderate Pain Intensity: 6 Pain Scale Used: 0-10 Numeric Location: Is Discrete @ - left foot Associated Signs And Symptoms: Positive: Swelling - left foot Aggravating Factor(s): Nothing Alleviating Factor(s): Nothing - Allergies/Home Medications Allergies/Adverse Reactions: Allergies Allergy/AdvReac Type Severity Reaction Status Date / Time No Known Allergies Allergy Verified 10/12/17 14:56 PMH/Surg Hx/FS Hx/Imm Hx Musculoskeletal History: Denies: Hx Gout Sensory History: Denies: Hx Deafness Opthamlomology History: Denies: Hx Legally Blind EENT History: Denies: Hx Deafness Infectious Disease History: No Infectious Disease History: Denies: Traveled Outside the [place] in Last 30 Days - Family History Known Family History: Positive: None Family History: Reviewed and Noncontributory - Social History Occupation: Employed Full-time Lives: With Family Alcohol Use: Occasionally Review of Systems Constitutional: Negative Eyes: Negative ENT: Negative Cardiovascular: Negative Respiratory: Negative Gastrointestinal: Negative Genitourinary: Negative Musculoskeletal: Other - left foot pain Positive: Edema - left foot Skin: Negative Neurological: Negative Psychological: Normal All Other Systems Reviewed And Are Negative: Yes Physical Exam - Summary Physical Exam Summary: VITAL SIGNS: Reviewed. GENERAL: Patient is a well-developed and nourished (MALE) who is lying comfortable in the stretcher. Patient is not in any acute respiratory distress. HEAD AND FACE: No signs of trauma. No ecchymosis, hematomas or skull depressions. No sinus tenderness. EYES: PERRLA, EOMI x 2, No injected conjunctiva, no nystagmus. EARS: Hearing grossly intact. Ear canals and tympanic membranes are within normal limits. MOUTH: Oropharynx within im limits. NECK: Supple, trachea is midline, no adenopathy, no JVD, no carotid bruit, no c- spine tenderness, neck with full ROM. CHEST: Symmetric, no tenderness at palpation LUNGS: Clear to auscultation bilaterally. No wheezing or crackles. CVS: Regular rate and rhythm, S1 and S2 present, no murmurs or gallops appreciated. ABDOMEN: Soft, non-tender. No signs of distention. No rebound no guarding, and no masses palpated. Bowel sounds are normal. EXTREMITIES: Tenderness and redness and swelling of the metatarsophalangeal joint NEURO: Alert and oriented x 3. No acute neurological deficits. Speech is normal and follows commands. SKIN: Dry and warm Triage Information Reviewed: Yes Vital Signs On Initial Exam: Initial Vitals Temp Pulse Resp BP Pulse Ox 97.5 F 62 16 148/98 97 07/01/18 23:01 07/01/18 23:01 07/01/18 23:01 07/01/18 23:01 07/01/18 23:01 Vital Signs Reviewed: Yes Diagnostics - Vital Signs Vital Signs Temp Pulse Resp BP Pulse Ox 07/02/18 01:59 14 07/01/18 23:01 97.5 F 62 16 148/98 97 - Laboratory Lab Statement: Any lab studies that have been ordered have been reviewed, and results considered in the medical decision making process. - Radiology Left Foot X-ray Radiology Interpretation Completed By: ED Physician - The Left foot X-ray revealed negative findings as per ED Physician. Lower Extremity Course/Dx - Course Course Of Treatment: The pt is a 52 y.o male presenting to the [facility] With chief complaints of left foot pain and swelling. The pt's X-rays at the left foot revealed negative findings and the pt has not PMHx history of gout. The pt will be discharged home with a dx of acute gout arthritis. - Diagnoses Provider Diagnoses: Acute gouty arthritis Discharge - Sign-Out/Discharge Documenting (check all that apply): Patient Departure - Discharge Home - Discharge Plan Condition: Stable Disposition: HOME Prescriptions: Indomethacin CAP* [Indocin CAP*] 50 mg PO TID #20 cap Patient Education Materials: Gout (ED) Referrals: Edmond Saez MD [Primary Care Provider] - Additional Instructions: RETURN TO THE EMERGENCY DEPARTMENT FOR CHANGING OR WORSENING SYMPTOMS. FOLLOW UP WITH PCP IN 1-2 DAYS. - Attestation Statements Document Initiated by Scribe: Yes Documenting Scribe: Yunior Medrano Provider For Whom Scribe is Documenting (Include Credential): Dr. Uriel Miranda Scribe Attestation: IYunior, scribed for Dr. Uriel Miranda on 07/02/18 at 0220.
[2018-07-02 02:37] VITALS: BP 127/85
== END 2018-07-02 02:29 | disposition home or self-care (01) ==
LOC: ED 22:59
DX: M10.072 Idiopathic gout, left ankle and foot (principal); M79.672 Pain in left foot; R60.0 Localized edema
CPT/HCPCS: 99282; A9270-GY

== ENCOUNTER 2019-05-27 16:53 | Emergency (ER) | payer OTHER ==
--- NOTE | 2019-05-27 17:13 | UC ---
Skin Complaint HPI - HPI Summary HPI Summary: 53 yo male presents with tick bite to LEFT upper arm. He tells me that he was hiking in [place] yesterday and thinks that is when he acquired the tick. Noticed it this morning and removed most of it, but there is still a black dot within the skin. Slight tenderness to the area. - History of Current Complaint Chief Complaint: UCSkin Time Seen by Provider: 05/27/19 17:12 Stated Complaint: TICK Hx Obtained From: Patient Onset/Duration: Sudden Onset Onset Severity: Mild Current Severity: Mild Pain Intensity: 1 Pain Scale Used: 0-10 Numeric - Allergy/Home Medications Allergies/Adverse Reactions: Allergies Allergy/AdvReac Type Severity Reaction Status Date / Time No Known Allergies Allergy Verified 05/27/19 17:11 Home Medications: Home Medications Levothyroxine TAB* [Synthroid TAB*] 50 mcg PO DAILY 05/27/19 [History Confirmed 05/27/19] PMH/Surg Hx/FS Hx/Imm Hx - Additional Past Medical History Additional PMH: Ulcerative Colitis Endocrine History: Hypothyroidism - Surgical History Surgical History: None - Family History Known Family History: Positive: Non-Contributory Family History: Reviewed and Noncontributory - Social History Lives: With Family Alcohol Use: Occasionally Substance Use Type: None Smoking Status (MU): Never Smoked Tobacco Review of Systems All Other Systems Reviewed And Are Negative: No Constitutional: Positive: Negative Skin: Positive: Other - Tick bite Respiratory: Positive: Negative Cardiovascular: Positive: Negative Neurological: Positive: Negative Psychological: Positive: Negative Physical Exam - Summary Physical Exam Summary: GENERAL: NAD. WDWN. No pain distress. SKIN: LEFT medial upper arm with there is a 7mm diameter of mild erythema and edema with central 1mm area of superficial skin loss. No streaking, bleeding, or drainage. NECK: Supple. Nontender. No lymphadenopathy. CHEST: No accessory muscle use. Breathing comfortably and in no distress. CV: Pulses intact. Cap refill <2seconds NEURO: Alert. PSYCH: Age appropriate behavior. Triage Information Reviewed: Yes Vital Signs: Initial Vital Signs Temp 97.2 F 05/27/19 17:06 Pulse 56 05/27/19 17:06 Resp 16 05/27/19 17:06 BP 143/102 05/27/19 17:06 Pulse Ox 99 05/27/19 17:06 Vital Signs Reviewed: Yes Course/Dx - Course Course Of Treatment: Tick bite. Will treat with doxycycline 200mg one time for prophylactic lyme. - Diagnoses Provider Diagnosis: Tick bite Discharge ED - Sign-Out/Discharge Documenting (check all that apply): Patient Departure All imaging exams completed and their final reports reviewed: No Studies - Discharge Plan Condition: Stable Disposition: HOME Patient Education Materials: Lyme Disease (ED), Tick Bite (ED) Referrals: Edmond Saez MD [Primary Care Provider] - Additional Instructions: If you develop a fever, shortness of breath, chest pain, new or worsening symptoms - please call your PCP or go to the ED immediately. Your blood pressure was high at todays visit. Please see your primary provider within 4 weeks for recheck and re-evaluation. You have been bitten by a tick. Once the tick is removed, these "bites" usually cause no problems. Tick fever, tick paralysis, [place] Spotted fever, and Lyme disease are uncommon -- but you should mention this tick bite to your doctor if you develop unusual symptoms in the next several weeks. If you develop any of the following, please see your physician promptly: (1) Fever, chills, or generalized malaise associated with a headache. (2) A red round area at the site of the bite (or elsewhere) (3) Joint pain, joint swelling or generalized weakness. (4) Redness, swelling, or drainage at the site of the bite. Ticks do not have a typical "head" attached to their body. There are mouth parts sticking out which they use to feed. If there are mouth parts left behind in the wound there is NO increased risk of Lyme infection or disease transmission. If mouth parts remain after tick removal, the best thing to do is apply warm soaks to the area 3-4 times per day to encourage the skin to expel the foreign material. WHEN A TICK IS NOT ENGORGED AND HAS BEEN ON LESS THAN 24 HOURS - THE RISK FOR LYME IS NEGLIGIBLE. YOU CAN REMOVE THE TICK AND OBSERVE THE AREA ON YOUR OWN. - Billing Disposition and Condition Condition: STABLE Disposition: Home
[2019-05-27] MEDS ORDERED: DOXYcycline CAP(*) 100 MG PO ONE (17:22)
[2019-05-27 17:25] VITALS: BP 150/80
== END 2019-05-27 17:30 | disposition home or self-care (01) ==
LOC: UCEAST 16:53
DX: S40.862A Insect bite (nonvenomous) of left upper arm, initial encounter (principal); E03.9 Hypothyroidism, unspecified; Z79.890 Hormone replacement therapy; W57.XXXA Bitten or stung by nonvenomous insect and other nonvenomous arthropods, initial encounter; Y92.9 Unspecified place or not applicable
CPT/HCPCS: 99212; A9270-GY; G0463